=== PATIENT | male | born 1980 | race Caucasian/White ===

== ENCOUNTER 2024-02-21 10:13 | Observation (INO) ==
--- NOTE | 2024-02-05 11:14 | PAT Medication Instructions ---
Medication Instructions Date of Service February 05, 2024 Home Medications Hydrocodone 325 mg PO Q6H PRN Pain cetirizine 10 mg tablet 10 mg PO DAILY DO NOT take the morning of surgery cetirizine 10 mg tablet 10 mg PO DAILY Take morning of surgery With a small sip of water, OTHERWISE NOTHING TO EAT OR DRINK AFTER MIDNIGHT: Hydrocodone 325 mg PO Q6H PRN Pain (if needed) Take evening before surgery Hydrocodone 325 mg PO Q6H PRN Pain (if needed) Other Notes If you have any questions please call us at [phone] or [phone] or [phone] or [phone]
--- NOTE | 2024-02-08 11:03 | Anesthesiology Consultation ---
Date of Service February 08, 2024 Assessment & Plan (1) Encounter for pre-operative examination: - Infectious disease screening: Per assessment on 02/08/24: No known recent infectious disease contacts or current infectious disease symptoms. - ETOH use: Patient reports 5 beers/day- evening. Denies morning ETOH use. Chart Review Chart Review: Acceptable Risk for Surgery and Patient seen in Pre Admission Testing Teaching & Discussion Pre-Anesthesia Teaching/Discussion Notes: Instructed NPO after midnight before surgery,except medications with 15 cc of water. Medication instructions provided according to the PAT guidelines. History Surgery Operation Date: 02/21/24 07:45 Proposed Procedures p L5-S1 Decompression and Fusion, with Spinal Cord Monitoring - Guillermo Moya DO Height/Weight Height: 6 ft Weight: 106.1 kg Allergies Allergy/AdvReac Type Severity Reaction Status Date / Time adhesive Allergy Rash Verified 02/02/24 15:15 egg Allergy upset Verified 02/02/24 15:07 stomach, diarrhea shellfish derived Allergy throat Verified 02/02/24 15:07 swelling Medications Home Medications Medication Instructions Recorded Confirmed Last Taken Hydrocodone 325 mg PO Q6H PRN Pain 02/02/24 02/02/24 Unknown cetirizine 10 mg tablet 10 mg PO DAILY 02/02/24 02/02/24 Unknown Past Medical History Medical History Environmental and seasonal allergies Neurostimulator device in situ 2021, [employer] device Aware to bring remote DOS Exercise / Class Metabolic Activity II 4-5 Yardwork/Stairs/Walk up hill (one FS: No CP, no SOB) Past Surgical History Surgical History History of lumbar discectomy Partial disectomy, L5-S1 (~2016) S/P placement of nerve stimulator Most recent 2021 (HEMANTH Napier) March device > Advised to bring remote to all appts Past Anesthesia History No Hx of Anesthesia Complications and No Family Hx of Anesthesia Complications History of PONV No Hx of PONV and No Hx of Motion Sickness Social History Smoking Status: Never smoker Do You Dip or Chew Tobacco: No (Quit 5 weeks ago; advised none DOS) Hx Alcohol Use: Yes Alcohol type: beer alcohol intake frequency: 3 or more drinks per day (5 beers/day (evening)) Hx Substance Use: No substance use type: does not use Review of Systems Patient denies chest pain, shortness of breath, dyspnea on exertion, fever, chills, cough, wheezing, palpitations. Physical Exam Vital Signs BP 124/82 P 66 TEMP 98.0 SP02 97%RA RESP 16 Physical Full cervical extension range of motion. Full TMJ range of motion. TMD > 3.5 finger breaths Mallampati Score 1 Dentition: intact Lungs: clear throughout to auscultation Cardiac: regular rate and rhythm, no murmurs noted Spine: normal Carotid arteries: negative bruit Extremities: no LE edema Lab Results Anesthesia Preop Results Results Anesthesia Widget: WBC 7.43 K/ul (4.8-10.8) 02/08/24 Hgb 13.9 g/dl (14.0-18.0) L 02/08/24 Hct 42.5 % (42.0-52.0) 02/08/24 Plt 257 K/uL (130-400) 02/08/24 Na 139 mmol/L (136-145) 02/08/24 K 4.3 mmol/L (3.5-5.1) 02/08/24 Cl 106 mmol/L (98-107) 02/08/24 CO2 26 mmol/L (21-32) 02/08/24 BUN 11 mg/dl (6-23) 02/08/24 Creat 0.99 mg/dl (0.6-1.4) 02/08/24 Glucose Level 93 mg/dl (70-99(Fasting)) 02/08/24 PT 10.3 Seconds (9.0-12.0) 02/08/24 PTT 26 Seconds (21-31) 02/08/24 INR 0.9 (0.9-1.1) 02/08/24 Urine Color Yellow 02/08/24 Urine Appearance Clear (Clear) 02/08/24 Urine pH 6.0 (4.5-7.5) 02/08/24 Urine Specific [place] 1.009 (1.000-1.030) 02/08/24 Urine Protein Negative (Negative) 02/08/24 Urine Glucose (UA) Negative (Negative) 02/08/24 Urine Ketones Negative (Negative) 02/08/24 Urine Blood Negative (Negative) 02/08/24 Urine Nitrite Negative (Negative) 02/08/24 Urine Bilirubin Negative (Negative) 02/08/24 Urine Urobilinogen Negative (Negative) 02/08/24 Urine Leukocyte Esterase Negative (Negative) 02/08/24 Blood Type O Positive 02/08/24 Antibody Screen NEGATIVE 02/08/24 Testing Electrocardiogram Date: 02/08/24 NSR with sinus arrhythmia at 61bpm. Chest X-Ray Date: 02/08/24 FINDINGS: Cardiomediastinal and hilar silhouettes are within normal limits. No pneumothorax, pleural effusion or airspace consolidation. Partially imaged spinal stimulator leads. The technologist accidentally labeled the left side inappropriately. The heart size is indeed within the left hemithorax. Bones appear intact. IMPRESSION: No acute process.
[~2024-02-21 10:13] MED LIST: ATROPINE SULFATE 0.1 MG/ML 10ML SYR IV PRN; HYDROmorphone INJ 2 MG/ML SYR/VIAL IV PRN; ONDANSETRON INJ 2 MG/ML 2 ML VIAL IV PRN; ePHEDrine sulfate 50 MG/ML AMP IV PRN
[2024-02-21] MEDS ORDERED: fentaNYL citrate PF 100 MCG/2 ML VIAL ONE ×2 (10:44→13:34)
[2024-02-21] MEDS ORDERED: MIDAZOLAM HCL 1 MG/ML 2ML VIAL ONE (10:44)
[2024-02-21] MEDS: LR 15ML/HR IV SCH (10:55)
[2024-02-21] MEDS: LR 60ML/HR IV SCH (10:56)
[2024-02-21] MEDS: CeleBREX 200 MG CAP PO SCH (10:57)
[2024-02-21] MEDS: GABAPENTIN 900 MG DOSE PO SCH (10:57)
[2024-02-21] MEDS: ACETAMINOPHEN 500 MG TAB PO SCH (10:58)
--- NOTE | 2024-02-21 12:06 | History & Physical Bridge Note ---
Date of Service February 21, 2024 History & Physical Bridge Note I have examined the patient, reviewed the History & Physical and in the interval since the performance of the History & Physical I have noted the following changes of clinical significance: no changes noted
--- NOTE | 2024-02-21 12:08 | History & Physical Report ---
Date of Service February 21, 2024 Assessment & Plan (1) Lumbar disc herniation with radiculopathy: Plan: L5-S1 decompression and fusion History of Present Illness Chief Complaint: Back and leg pain Primary Care Provider: NO PCP This is a 43-year-old male presents with chronic persistent back and leg pain. Failing since a course of nonoperative care is here for surgical intervention. Allergies Allergy/AdvReac Type Severity Reaction Status Date / Time adhesive Allergy Rash Verified 02/21/24 10:34 egg Allergy upset Verified 02/21/24 10:34 stomach, diarrhea shellfish derived Allergy throat Verified 02/21/24 10:34 swelling Home Medications Medication Instructions Recorded Confirmed Type Hydrocodone 325 mg PO Q6H PRN Pain 02/02/24 02/21/24 History cetirizine 10 mg tablet 10 mg PO DAILY 02/02/24 02/21/24 History Past Med/Surg History Problem List (Updated 02/21/24 @ 12:08 by Guillermo Moya DO) Lumbar disc herniation with radiculopathy Encounter for pre-operative examination Medical History Environmental and seasonal allergies Neurostimulator device in situ 2021, March device Aware to bring remote DOS Surgical History History of lumbar discectomy Partial disectomy, L5-S1 (~2016) S/P placement of nerve stimulator Most recent 2021 (HEMANTH Napier) March device > Advised to bring remote to all appts Social History Smoking Status: Never smoker Second Hand Exposure: No; Do You Dip or Chew Tobacco: No (Quit 5 weeks ago; advised none DOS); Tobacco Cessation Education Requested by Patient: No Hx Alcohol Use: Yes Alcohol type: beer Hx Substance Use: No Preferred Language: Turkmen Communication Ability: Effective Mailing Manager Required: No Beliefs That Will Affect Care: None Current Living Situation: Significant Other Other Information That Helps Us Care for You: No Feels Safe at Home: Yes Safety Concerns: Feels Safe At This Time Assistive Devices: None Physical Exam Physical Exam: Patient is alert and oriented Heart regular rhythm Lungs clear Results & Data Results & Data Vital Signs (Past 12 Hours) Vital Signs Temp Pulse Resp BP Pulse Ox O2 Del Method 02/21/24 10:36 36.7 C 67 18 148/89 H 98 Room Air
[2024-02-21] MEDS: ceFAZolin 2000MG 2,000 MG/15 ML SYR IV SCH ×2 (12:25→20:28)
[2024-02-21] MEDS ORDERED: ePHEDrine sulfate 50 MG/ML AMP IV PRN (12:52)
[2024-02-21] MEDS ORDERED: HYDROmorphone INJ 2 MG/ML SYR/VIAL IV PRN (12:52)
[2024-02-21] MEDS ORDERED: ATROPINE SULFATE 0.1 MG/ML 10ML SYR IV PRN (12:52)
[2024-02-21] MEDS ORDERED: ONDANSETRON INJ 2 MG/ML 2 ML VIAL IV PRN ×2 (12:52→15:43)
[2024-02-21] MEDS ORDERED: LIDOCAINE 2% 2 ML VIAL/AMP(20MG/ML) INFIL ONE (12:53)
[2024-02-21] MEDS ORDERED: ONDANSETRON INJ 2 MG/ML 2 ML VIAL ONE (12:53)
[2024-02-21] MEDS ORDERED: PROPOFOL IV EMULSION 10 MG/ML 20 ML VIAL IV ONE (12:53)
[2024-02-21] MEDS ORDERED: DEXAMETHASONE SOD INJ 4 MG/ML VIAL ONE (12:53)
[2024-02-21] MEDS ORDERED: ROCURONIUM BROMIDE 10 MG/ML 5 ML VIAL IV ONE (12:53)
[2024-02-21] MEDS: BUPIVACAINE/EPINEPHRINE 0.25% 1:200,000 30 ML VIAL ONE (12:57)
[2024-02-21] MEDS: ceFAZolin 330 MG/ML 1 GM VIAL ONE (14:15)
[2024-02-21] MEDS ORDERED: GLYCOPYRROLATE 0.2 MG/ML VIAL ONE ×2 (14:25→14:28)
[2024-02-21] MEDS ORDERED: NEOSTIGMINE METHYLSULFATE 1 MG/ML 10ML VIAL ONE (14:25)
--- NOTE | 2024-02-21 14:26 | Operative Report ---
Post Operative Report Pre & Post Diagnosis Operation Date: 02/21/24 11:55 Pre-Op Diagnosis: Lumbar disc herniation with radiculopathy Postop diagnosis Same I identified the patient and participated in the time-out.: Yes Procedure Operation Date: 02/21/24 11:55 Actual Procedures #1 revision decompression L4-L5 L5-S1 with bilateral medial facetectomies and foraminotomies. #2 posterior spinal fusion at L5-S1. #3 placed posterior instrumentation L5-S1. #4 interbody fusion L5-S1. #5 placement of Spira 13 x 26 mm x 2 at L5-S1. #6 placement of locally harvested morselized autograft and posterior gutters per #7 placement infuse collagen sponge, with Koros in the posterior lateral gutters and Morpheus bone graft in the interbody space. Surgeon Guillermo Moya, DO Cardiopulmonary Technician Mnoica Dolan Estimated Blood Loss 250 Findings See Below The patient is 6 foot tall weighing over 103 kg with a BMI of 31. Patient body habitus did contribute to significant technical difficulty requiring our deepest retractors and longer instruments in order perform his procedure. This at least 50% increased operative time. Specimens None Indications This is a 43-year-old male presents above-mentioned diagnosis after failed course of nonoperative care is here for surgical invention. Description of Procedure Patient was met with identified informed consent obtained. Patient was then taken to the operative suite underwent ablation placed in a prone position on the Rolan table on top of the Jose frame. All bony promises well-padded eyes inspected to ensure no external pressure placed upon the. This point the lumbar spine was prepped and draped in normal sterile fashion. Sharp dissection with the assistance of Bovie cautery performed down to and exposing the remaining lamina transverse processes of L5 and sacral ala bilaterally. From a caudal cephalad fashion revision complete laminectomy of L5 was performed including bilateral medial facetectomies and foraminotomies addressing severe spinal stenosis. I then proceeded to perform postlaminectomy of L4 including bilateral medial facetectomies to address all subarticular neural compression. Pedicle screws then placed in L5 and S1 bilaterally with assistance of fluoroscopy and appropriate size christopher placed. By way of transforaminal approach on the right a discectomy of L5-S1 was performed endplates guided to subcortical bleeding bone and the 13 x 26 mm spiral cage filled with Morpheus bone graft tapped in position. Then proceeded to the left transforaminal region. Again discectomy performed endplates guided to subcortical white bone and a second 13 x 26 mm spiral cage filled Morpheus tapped in position. The rods were then locked in final position bilaterally. The transverse processes of L5 and sacral ala burred to subcortical bleeding bone. Infuse collagen sponge combined with Koros and local autograft placed in the posterior gutters. 15 round ABHISHEK drain inserted. The incision was then closed with 1 Vicryl in the fascia 2-0 Vicryl subcutaneously and 4 Monocryl for final skin closure. Steri-Strips sterile dressing placed. Patient awakened taken to PACU in stable condition. Please note Monica Dolan was present at the entire procedure and all the patient positioning complex portions of the surgery and final skin closure. Spinal cord monitoring was utilized at the procedure no changes noted. Im ordering 20 grams of Triple [place] Collagen Powder ([employer] [id number]) to treat an incision wound that was caused by a spine procedure. The incision is approximately 2 cm(W) x 4 cm(L) into the joint (D) in size and is a full thickness wound. Triple [place] collagen comes in 1 gram packets so 20 packets were ordered. Given the size of the wound, with light to moderate exudate I chose to order a 20 day supply. The patient will be provided instructions for proper application of the collagen wound kit. The patient will be asked to apply the collagen powder daily and then cover it with sterile dressings dispensed. Collagen was selected as I expect the collagen to attract monocytes and fibroblasts, act as a sacrificial substrate for MMPs, and ultimately proved a matrix for tissue and vessel growth. The collagen will act as a primary dressing in this scenario. It is medically necessary for proper healing of these wounds to improve bioavailability and contact with each wound surface, this is also to help prevent infection of wounds and promote healing ultimately leading to a better healing outcome and limit the risk of infection. I attest to the content of the Intraoperative Record and any orders documented therein. Any exceptions are noted below.
[2024-02-21] MEDS: FLOSEAL HEMOSTATIC MATRIX 10ML TOP ONE (14:28)
--- NOTE | 2024-02-21 14:52 | Fluoroscopy Report ---
FL lumbar spine 2-3V CLINICAL HISTORY: L5-S1 DECOMPRESSION AND FUSION TECHNIQUE: 2 views were obtained with the C-arm in the OR with the above procedure. Total fluoroscopy time was 24 seconds. Radiation dose was 22.12 mGy. Comparison: Comparison is made to MRI lumbar spine 08/30/2017 FINDINGS/IMPRESSION: Intraoperative images were obtained of L5-S1 decompression and fusion. Please correlate with intraoperative fluoroscopy and operative report. ACT 112: Negative or not required by law. Electronically signed by: Johnson Soriano M.D. 02/21/2024 2:50 PM
--- NOTE | 2024-02-21 15:32 | Anesthesiology Progress Note ---
Date of Service February 21, 2024 Anesthesia Post Procedure Vital Signs Vital Signs: Temp Pulse Pulse Resp BP Pulse Ox O2 Del Method 02/21/24 15:25 70 16 126/88 100 Room Air 02/21/24 15:15 36.6 C 63 12 124/77 100 Room Air 02/21/24 15:10 59 L 16 126/80 100 Room Air 02/21/24 15:00 66 12 121/76 100 Room Air 02/21/24 14:50 65 14 113/73 100 Oxymask 02/21/24 14:45 53 L 12 133/89 100 Oxymask 02/21/24 14:39 36.4 C L 88 18 133/89 100 Oxymask 02/21/24 10:36 36.7 C 67 18 148/89 H 98 Room Air O2 Flow Rate 02/21/24 15:25 0 02/21/24 15:15 0 02/21/24 15:10 0 02/21/24 15:00 0 02/21/24 14:50 2 02/21/24 14:45 4 02/21/24 14:39 8 02/21/24 10:36 Pain Intensity Right Leg: Pain Intensity: 4 Transfer of Care Handoff Completed per policy Notes Mental Status: alert / awake / arousable Patient Amnestic to Procedure: Yes Nausea / Vomiting: adequately controlled Pain: adequately controlled Airway Patency, RR, SpO2: stable & adequate BP & HR: stable & adequate Hydration State: stable & adequate Anesthetic Complications: no major complications apparent
[2024-02-21] MEDS ORDERED: diphenhydrAMINE Capsule 25 MG CAP PO PRN (15:43)
[2024-02-21] MEDS ORDERED: bisacodyL 10 MG SUPP PR PRN (15:43)
[2024-02-21] MEDS ORDERED: MAGNESIUM HYDROXIDE SUSP 30 ML UDC PO PRN (15:43)
[2024-02-21] MEDS ORDERED: DO NOT ADMINISTER PNEUMOCOCCAL VACCINE PRN (15:43)
[2024-02-21] MEDS ORDERED: PROMETHAZINE HCL 12.5 MG in SODIUM CHLORIDE 0.9% 50 ML IV PRN (15:43)
[2024-02-21] MEDS ORDERED: NALOXONE HCL 0.4 MG/1 ML VIAL/CARP IV PRN (15:43)
[2024-02-21] MEDS ORDERED: oxyCODONE HCL IR 5 MG TAB (IMMEDIATE RELEASE) PO PRN (15:43)
[2024-02-21] MEDS ORDERED: hydrOXYzine HCl 25 MG TAB PO PRN (15:43)
[2024-02-21] MEDS ORDERED: HYDROmorphone INJ 0.5 MG/0.5 ML SYR IV PRN (15:43)
[2024-02-21] MEDS ORDERED: ACETAMINOPHEN 500 MG TAB PO PRN (15:43)
[2024-02-21] MEDS ORDERED: ALUMINUM/MAGNESIUM SUSP 30 ML UDC PO PRN (15:43)
[2024-02-21] MEDS ORDERED: ONDANSETRON 4 MG OD TAB PO PRN (15:43)
[2024-02-21] MEDS ORDERED: METOCLOPRAMIDE HCL INJ 5 MG/ML 2 ML VIAL IV PRN (15:43)
[2024-02-21] MEDS ORDERED: HYDROmorphone INJ 1 MG/ML SYRINGE IV PRN (15:43)
[2024-02-21] MEDS ORDERED: SOD PHOSPHATE/SOD BIPHOSPHATE ENEMA 132 ML BTL PR PRN (15:43)
[2024-02-21] MEDS ORDERED: LORazepam 0.5 MG in SYRINGE 0.25 ML IV PRN (15:43)
[2024-02-21] MEDS ORDERED: traMADol HCL 50 MG TABLET PO PRN (15:43)
[2024-02-21] MEDS ORDERED: ACETAMINOPHEN 1,000 MG/100 ML VIAL IV PRN (15:43)
[2024-02-21] MEDS ORDERED: DO NOT ADMINISTER FLU VACCINE PRN (15:43)
[2024-02-21] MEDS ORDERED: FAMOTIDINE 20 MG TAB PO PRN (15:43)
[2024-02-21] MEDS ORDERED: LORazepam 0.5 MG TAB PO PRN (15:43)
[2024-02-21] MEDS: LACTATED RINGER'S 1,000 ML IV SCH (16:02)
[2024-02-21] MEDS: KETOROLAC 30 MG/ML VIAL IV SCH (17:08)
[2024-02-21] MEDS: DOCUSATE SODIUM/SENNA 50/8.6MG TAB PO SCH (20:28)
[2024-02-22] MEDS: POLYETHYLENE (MIRALAX) 17 GM PACK PO SCH (05:08)
[2024-02-22 07:00] LABS: Basophils # (auto) 0.02 K/uL (0.00-0.20); Basophils % (auto) 0.2 %; Eosinophils # (auto) 0.02 K/uL (0.00-0.50); Eosinophils % (auto) 0.2 %; Hematocrit (blood only) 34.4 % (42.0-52.0); Hemoglobin 11.3 g/dl (14.0-18.0); Immature Granulocytes # (auto) 0.08 K/uL (0.01-0.20); Immature Granulocytes % (auto) 0.6 %; Lymphocytes # (auto) 1.82 K/uL (1.20-3.40); Lymphocytes % (auto) 14.2 %; Mean Corpuscular Hemoglobin 29.6 pg (25.0-34.0); Mean Corpuscular Hgb Conc 32.8 g/dL (32.0-36.0); Mean Corpuscular Volume 90.1 fL (80.0-100.0); Mean Platelet Volume 10.4 fL (9.4-12.4); Monocytes # (auto) 1.31 K/uL (0.11-0.59); Monocytes % (auto) 10.3 %; Neutrophils # (auto) 9.53 K/uL (1.40-6.50); Neutrophils % (auto) 74.5 %; Platelet Count 254 K/uL (130-400); RDW Coefficient of Variation 12.7 % (11.5-14.5); RDW Standard Deviation 42.2 fL (36.4-46.3); Red Blood Count 3.82 M/uL (4.70-6.10); White Blood Count 12.78 K/ul (4.8-10.8)
[2024-02-22 07:15] LABS: BUN Creatinine Ratio 10.7 (10-20); Calcium 8.9 mg/dl (8.6-10.3); Creatinine Clr Calc Pharmacy 106.9 ml/min; Est GFR (African American) 93.4 ml/min; Est GFR (Non-African American) 80.6 ml/min; Potassium 4.2 mmol/L (3.5-5.1)
[2024-02-22] MEDS: CETIRIZINE HCL 10 MG TABLET PO SCH (08:24)
[2024-02-22] MEDS: dexAMETHasone 6 MG in SYRINGE 0 ML IV SCH (08:24)
--- NOTE | 2024-02-22 09:27 | Orthopedic Progress Note ---
Date of Service February 22, 2024 Assessment & Plan (1) Lumbar disc herniation with radiculopathy: Plan: At this time initiate physical therapy monitor his ABHISHEK output hopefully discharge home in the next few days. Admission and Anticipated Discharge Date Admission Date: February 21, 2024 Subjective Patient's back pain is controlled leg symptoms markedly improved Physical Exam Physical Exam: Patient is comfortable. Is constricted testing. Results & Data Vital Signs (Past 12 Hours) Vital Signs Temp Pulse Resp BP Pulse Ox O2 Del Method 02/22/24 07:10 36.6 C 80 18 122/81 99 Room Air 02/22/24 03:15 36.7 C 91 H 18 128/80 94 Room Air 02/21/24 23:02 36.9 C 90 18 136/85 96 Room Air
--- NOTE | 2024-02-23 12:17 | Discharge Summary ---
Date of Service February 23, 2024 Admission HPI Per Admitting Provider This is a 43-year-old male presents with chronic persistent back and leg pain. Failing since a course of nonoperative care is here for surgical intervention. Principal Diagnosis Recurrent lumbar disc herniation with radiculopathy Discharge Data Allergies Allergy/AdvReac Type Severity Reaction Status Date / Time adhesive Allergy Rash Verified 02/21/24 10:34 egg Allergy upset Verified 02/21/24 10:34 stomach, diarrhea shellfish derived Allergy throat Verified 02/21/24 10:34 swelling Procedures Performed Operation Date: 02/21/24 11:55 Actual Procedures p L5-S1 Decompression and Fusion, Spinal Cord Monitoring(Not Applicable) - Guillermo Moya DO Ordered Studies 02/21/24 11:55 [place] lumbar spine 2-3V Routine Hospital Course (1) Lumbar disc herniation with radiculopathy: Patient went lumbar decompression fusion tolerates well was taken to orthopedic for postoperative. Postop Darryn progressed very nicely. Marked improvement of his leg symptoms. Back pain controlled. ABHISHEK drain decreased appropriately. Excellent strength testing. Subsidy discharged home. Discharge orders instructions from the chart for further review. Total Time Total Time Spent Total Time Spent (In Minutes): 20 minutes Discharge Plan Discharge Items Patient Disposition: Home - Self-Care Reason For Visit: Lumbar Disc Disease with Radiculopathy, Lumbar Spo Discharge Diagnosis: Lumbar disc herniation with radiculopathy Activity: As commented below Non-emergency contact: Primary Care Provider Call non-emergency contact if: you have any medication questions Follow-up/Referrals: PCP,NO [Primary Care Provider] - Diet: Regular Addtl Attending Provider Instructions: ACTIVITY RECOMMENDATIONS: SELF CARE INSTRUCTIONS AFTER THORACIC/LUMBAR FUSIONS 1. You may walk to your tolerance. It is good exercise for your legs and back. Expect some back and intermittent leg aches and pains. 2. You may perform "counter-top" level activities (make a sandwich, adali with a project, etc.). 3. No bending or lifting of more than 10 pounds or back twisting of any nature (roll like a log when turning in bed). 4. You may ride in a car for 20-30 minutes at a time. No driving until after your first visit with your doctor. 5. Frequent changes of position and restricting sitting to 30 minutes at a time will help limit the amount of back spasms and stiffness you may experience. 6. You may discontinue the use of ambulatory aids (cane, crutches, etc.) once your strength and confidence allow. 7. You may installation specialist the shower and let water strike your incision when you arrive home at least once daily. Do not take a tub bath, sit in a hot tub or go into a swimming pool until after your first recheck in the office. SPECIAL CARE INSTRUCTIONS: VERY IMPORTANT TO READ AND REVIEW A. Your surgical incision has been closed with a cosmetic suture under the skin that will dissolve in about 6 weeks. In 14 days, you can use a pair of clean scissors and cut the suture that is left outside of the skin at the ends of your incision. 1. The small skin tapes can be removed 7 days after surgery if they have not fallen off by that point. 2. You may keep the wound open to air as much as possible to promote healing after post-op day number 5 unless told otherwise by your doctor. 3. If you think the wound looks like it is becoming infected (redness or worsening drainage) and/or you are experiencing fever, chill or worsening back pain and muscle spasms, contact the office so that we may evaluate you as soon as possible. B. Complications are uncommon, but please contact us if you have any signs or symptoms of: 1. wound infection (fever higher than 102.5 degrees F, redness, separation of wound, drainage, or increasing pain from the incision) 2. blood clots in legs (pain, swelling, redness and warmth in legs) 3. urinary tract infection (fever higher than 102.5 degrees F, burning upon urination or increased frequency of urination) 4. nerve problems (inability to walk on your toes or heels, numbness, loss of bowel or bladder control) 5. any other symptoms that concern you C. Please call the office at if you have any concerns or questions about your operation or recovery. D. No smoking! Smoking drastically decreases the chance of a solid fusion. E. Do not take any anti-inflammatory medications (Indocin, Advil, Motrin, Aspirin, Naprosyn, etc.) as these may inhibit the chance of a solid fusion. Tylenol is okay to take for pain. MANAGING PAIN AFTER SPINAL SURGERY 1. Narcotic medication is intended for short-term use and will be provided for surgical pain. Surgical pain usually lasts for a period of 4-6 weeks. Narcotic medication includes Percocet, Vicodin, Darvocet, Tylenol #3 or Lortab. 2. Longer-term pain is more appropriately treated with non-narcotic medication such as Tylenol ES. 3. Muscle spasm is not appropriately treated with narcotics. Muscle relaxers such as Soma, Flexeril or Skelaxin can be used along with Tylenol ES. 4. Remember that we all live with some "aches and pains". This is not unusual or uncommon after an injury or as we get older. a. Back pain is expected and may include muscle spasms for 4 to 6 weeks after surgery. The pain should gradually improve. If the pain worsens for no apparent reason, please contact the office. b. Intermittent leg pain may also be experienced and should not be concerned about unless it worsens for no apparent reason. If so, please contact the office. 5. We will provide appropriate medication within the normal guidelines of their prescribed use. We will also be very cautious and aware of potential abuse and extended duration of patients' medication needs. a. Pain medications are for your comfort and to assist with sleep and rest so that the tissue can heal. They are not provided in order to return to normal activity and should not be used through the day. To do so or worsening pain at night can result from ongoing tissue damage and development of tolerance to the prescribed medicine. 6. Please allow 2-3 days to process refills. Prescriptions will not be mailed but must be picked up at the office. FOLLOW UP VISIT: Keep your scheduled follow-up appointment. Any questions, please call the office at . Pending Studies at Discharge: No Stand-Alone Forms: [facility], Smoking Cessation Medications and DC Order Prescriptions: New tramadol 50 mg tablet 50 mg PO Q6H PRN (Reason: pain, moderate) Qty: 30 0RF oxycodone 5 mg tablet 5 mg PO Q6H PRN (Reason: pain) Qty: 30 0RF Continued cetirizine 10 mg Tablet 10 mg PO DAILY Discontinued Hydrocodone 325 mg PO Q6H PRN (Reason: Pain) Discharge Orders: Discharge Order (Routine); Ordered 02/23/24 Ordered By: Guillermo Moya Admission Data Admit Date/Time: 02/21/24 14:29 Attending Provider: Guillermo Moya Admit Provider: Guillermo Moya Primary Care Provider: [email or web address]
== END 2024-02-23 14:42 | disposition home or self-care (01) | DRG 455 ==
LOC: ASU 10:13 → INTOOBSV 14:29 → 3W 14:29